=== PATIENT | female | born 1940 | race Caucasian/White ===

== ENCOUNTER → 2017-03-16 | Outpatient (CLI) | payer MEDICARE ==
[2017-03-16 10:56] LABS: BASOPHILS # (AUTO) 0.1 10^3/uL (0.0-0.1); BASOPHILS % (AUTO) 1 % (0-10); EOSINOPHILS # (AUTO) 0.2 10^3/uL (0.0-0.3); EOSINOPHILS % (AUTO) 4 % (0-10); LYMPHOCYTES # (AUTO) 2.9 X 10^3 (1.0-4.0); LYMPHOCYTES % (AUTO) 47 % (12-44); MEAN CORPUSCULAR HEMOGLOBIN 31 PG (25-34); MEAN CORPUSCULAR HGB CONC 34 G/DL (32-36); MEAN CORPUSCULAR VOLUME 91 FL (80-99); MEAN PLATELET VOLUME 11.3 FL (7.4-10.4); MONOCYTES # (AUTO) 0.6 X 10^3 (0.0-1.0); MONOCYTES % (AUTO) 10 % (0-12); NEUTROPHILS # (AUTO) 2.4 X 10^3 (1.8-7.8); NEUTROPHILS % (AUTO) 39 % (42-75); PLATELET COUNT 186 10^3/uL (130-400); RED BLOOD COUNT 4.87 10^6/uL (4.35-5.85); RED CELL DISTRIBUTION WIDTH 12.8 % (10.0-14.5); WHITE BLOOD COUNT 6.2 10^3/uL (4.3-11.0)
[2017-03-16 11:16] LABS: ALANINE AMINOTRANSFERASE 23 U/L (0-55); ALBUMIN 4.1 GM/DL (3.2-4.5); ANION GAP 7 MMOL/L (5-14); ASPARTATE AMINO TRANSFERASE 24 U/L (5-34); BILIRUBIN,TOTAL 1.1 MG/DL (0.1-1.0); BLOOD UREA NITROGEN 14 MG/DL (7-18); BUN/CREATININE RATIO 16; CALCIUM 10.2 MG/DL (8.5-10.1); CARBON DIOXIDE 27 MMOL/L (21-32); CHLORIDE 107 MMOL/L (98-107); CREATININE SERUM 0.85 MG/DL (0.60-1.30); GFR ESTIMATED > 60; GLUCOSE 96 MG/DL (70-105); POTASSIUM 4.2 MMOL/L (3.6-5.0); SODIUM 141 MMOL/L (135-145)
== END ==
LOC: ONC 10:45
PROVIDERS: ATTEND Internal Medicine Hematology & Oncology
DX: Z08 Encounter for follow-up examination after completed treatment for malignant neoplasm (principal); Z85.3 Personal history of malignant neoplasm of breast; Z90.710 Acquired absence of both cervix and uterus; Z92.21 Personal history of antineoplastic chemotherapy; Z92.3 Personal history of irradiation
CPT/HCPCS: 80053; 85025; 99213

== ENCOUNTER → 2018-03-16 | Outpatient (CLI) | payer MEDICARE ==
[2018-03-16 10:32] LABS: BASOPHILS # (AUTO) 0.1 10^3/uL (0.0-0.1); BASOPHILS % (AUTO) 1 % (0-10); EOSINOPHILS # (AUTO) 0.2 10^3/uL (0.0-0.3); EOSINOPHILS % (AUTO) 4 % (0-10); HEMATOCRIT 44 % (35-52); HEMOGLOBIN 14.8 G/DL (11.5-16.0); LYMPHOCYTES # (AUTO) 2.7 X 10^3 (1.0-4.0); LYMPHOCYTES % (AUTO) 49 % (12-44); MEAN CORPUSCULAR HEMOGLOBIN 31 PG (25-34); MEAN CORPUSCULAR HGB CONC 34 G/DL (32-36); MEAN CORPUSCULAR VOLUME 91 FL (80-99); MEAN PLATELET VOLUME 10.7 FL (7.4-10.4); MONOCYTES # (AUTO) 0.6 X 10^3 (0.0-1.0); MONOCYTES % (AUTO) 10 % (0-12); NEUTROPHILS % (AUTO) 35 % (42-75); PLATELET COUNT 182 10^3/uL (130-400); RED BLOOD COUNT 4.84 10^6/uL (4.35-5.85); RED CELL DISTRIBUTION WIDTH 13.2 % (10.0-14.5); WHITE BLOOD COUNT 5.5 10^3/uL (4.3-11.0)
[2018-03-16 10:56] LABS: ALANINE AMINOTRANSFERASE 20 U/L (0-55); ALBUMIN 4.3 GM/DL (3.2-4.5); ALKALINE PHOSPHATASE 72 U/L (40-136); BILIRUBIN,TOTAL 1.3 MG/DL (0.1-1.0); BUN/CREATININE RATIO 20; CALCIUM 9.7 MG/DL (8.5-10.1); CARBON DIOXIDE 25 MMOL/L (21-32); CHLORIDE 107 MMOL/L (98-107); CREATININE SERUM 0.83 MG/DL (0.60-1.30); GFR ESTIMATED > 60; GLUCOSE 75 MG/DL (70-105); SODIUM 139 MMOL/L (135-145); TOTAL PROTEIN 7.1 GM/DL (6.4-8.2)
== END ==
LOC: ONC 10:24
PROVIDERS: ATTEND Internal Medicine Hematology & Oncology
DX: Z08 Encounter for follow-up examination after completed treatment for malignant neoplasm (principal); Z85.3 Personal history of malignant neoplasm of breast; Z90.710 Acquired absence of both cervix and uterus; Z92.21 Personal history of antineoplastic chemotherapy; Z92.3 Personal history of irradiation
CPT/HCPCS: 80053; 85025; 99213

== ENCOUNTER → 2018-08-24 | Outpatient (CLI) | payer MEDICARE ==
[2018-08-24 09:50] LABS: ALANINE AMINOTRANSFERASE 21 U/L (0-55); ALBUMIN 4.4 GM/DL (3.2-4.5); ALKALINE PHOSPHATASE 96 U/L (40-136); BUN/CREATININE RATIO 14; CALCIUM 9.6 MG/DL (8.5-10.1); CARBON DIOXIDE 20 MMOL/L (21-32); CHLORIDE 101 MMOL/L (98-107); CREATININE SERUM 0.78 MG/DL (0.60-1.30); GFR ESTIMATED > 60; GLUCOSE 116 MG/DL (70-105); POTASSIUM 4.5 MMOL/L (3.6-5.0); SODIUM 137 MMOL/L (135-145); TOTAL PROTEIN 7.3 GM/DL (6.4-8.2)
[2018-08-24 15:19] LABS: CHOLESTEROL 227 MG/DL (< 200); HDL CHOLESTEROL 72 MG/DL (40-60); TRIGLYCERIDES 89 MG/DL (<150); VLDL CHOLESTEROL 18 MG/DL (5-40)
== END ==
LOC: LAB FS 09:05
PROVIDERS: ATTEND Pediatrics
DX: I10 Essential (primary) hypertension (principal); E78.00 Pure hypercholesterolemia, unspecified
CPT/HCPCS: 36415; 80053; 80061

== ENCOUNTER 2018-09-20 17:10 | Emergency (ER) | payer MEDICARE ==
[~2018-09-20] VITALS: Ht 167.6 cm; Wt 79.8 kg
--- OUTSIDE RECORDS SUMMARY | 2018-09-20 17:16 | XMS REPORT | Continuity of Care Document ---
Author Organization Unknown Address Unknown Allergies There is no data. Medications There is no data. Problems Date Dx Coded Attending Type Code Diagnosis Diagnosed By 04/06/2014 ILSA SAMS N Ot V10.3 04/06/2014 LATRELLEVETTE RICEAN N Ot V45.77 04/06/2014 LATRELL BOBAN N Ot V58.69 04/06/2014 LATRELL BOBAN N Ot V67.1 04/06/2014 LATRELL BOBAN N Ot V67.2 04/06/2014 LATRELL BOBAN N Ot V88.01 05/24/2015 LATRELL BOBAN N Ot Z08 05/24/2015 LATRELL BOBAN N Ot Z85.3 05/24/2015 LATRELL BOBAN N Ot Z90.710 05/24/2015 LATRELL, BOBAN N Ot Z92.21 05/24/2015 LATRELL, BOBAN N Ot Z92.3 05/30/2015 LATRELL, BOBAN N Ot Z08 05/30/2015 LATRELL, BOBAN N Ot Z85.3 05/30/2015 LATRELL, BOBAN N Ot Z90.710 05/30/2015 LATRELL, BOBAN N Ot Z92.21 05/30/2015 LATRELL, BOBAN N Ot Z92.3 04/07/2016 LATRELL BOBAN N Ot Z08 ENCNTR FOR FOLLOW-UP EXAM AFTER TRTMT FO 04/07/2016 LATRELL, BOBAN N Ot Z85.3 PERSONAL HISTORY OF MALIGNANT NEOPLASM O 04/07/2016 LATRELL, BOBAN N Ot Z90.710 ACQUIRED ABSENCE OF BOTH CERVIX AND UTER 04/07/2016 LATRELL, BOBAN N Ot Z92.21 PERSONAL HISTORY OF ANTINEOPLASTIC CHEMO 04/07/2016 LATRELLEVETTE RICEAN N Ot Z92.3 PERSONAL HISTORY OF IRRADIATION 04/15/2016 EVETTE SAMSAN N Ot Z08 ENCNTR FOR FOLLOW-UP EXAM AFTER TRTMT FO 04/15/2016 ILSA SAMS N Ot Z85.3 PERSONAL HISTORY OF MALIGNANT NEOPLASM O 04/15/2016 ILSA SAMS N Ot Z90.710 ACQUIRED ABSENCE OF BOTH CERVIX AND UTER 04/15/2016 ILSA SAMS N Ot Z92.21 PERSONAL HISTORY OF ANTINEOPLASTIC CHEMO 04/15/2016 ILSA SAMS N Ot Z92.3 PERSONAL HISTORY OF IRRADIATION 04/06/2017 ILSA SAMS N Ot Z08 ENCNTR FOR FOLLOW-UP EXAM AFTER TRTMT FO 04/06/2017 ILSA SAMS N Ot Z85.3 PERSONAL HISTORY OF MALIGNANT NEOPLASM O 04/06/2017 ILSA SAMS N Ot Z90.710 ACQUIRED ABSENCE OF BOTH CERVIX AND UTER 04/06/2017 ILSA SAMS N Ot Z92.21 PERSONAL HISTORY OF ANTINEOPLASTIC CHEMO 04/06/2017 ILSA SAMS N Ot Z92.3 PERSONAL HISTORY OF IRRADIATION 04/15/2017 ILSA SAMS N Ot Z08 ENCNTR FOR FOLLOW-UP EXAM AFTER TRTMT FO 04/15/2017 ILSA SAMS N Ot Z85.3 PERSONAL HISTORY OF MALIGNANT NEOPLASM O 04/15/2017 ILSA SAMS N Ot Z90.710 ACQUIRED ABSENCE OF BOTH CERVIX AND UTER 04/15/2017 ILSA SAMS N Ot Z92.21 PERSONAL HISTORY OF ANTINEOPLASTIC CHEMO 04/15/2017 ILSA SAMS N Ot Z92.3 PERSONAL HISTORY OF IRRADIATION 03/16/2018 ILSA SAMS N Ot V10.3 HX OF BREAST MALIGNANCY 03/16/2018 ILSA SAMS Ot V58.69 OTH MED,LT,CURRENT USE 03/16/2018 ILSA SAMS N Ot V67.1 RADIOTHERAPY FOLLOW-UP 03/16/2018 ILSA SAMS N Ot V67.2 CHEMOTHERAPY FOLLOW-UP 03/16/2018 ILSA SAMS N Ot V88.01 ACQUIRED ABSENCE OF BOTH CERVIX AND UTER 03/16/2018 ILSA SAMS N Ot V10.3 HX OF BREAST MALIGNANCY 03/16/2018 ILSA SAMS N Ot V45.77 ACQRD ABSENCE OF GENITAL ORGANS 03/16/2018 ILSA SAMS N Ot V58.69 OTH MED,LT,CURRENT USE 03/16/2018 ILSA SAMS N Ot V67.1 RADIOTHERAPY FOLLOW-UP 03/16/2018 ILSA SAMS N Ot V67.2 CHEMOTHERAPY FOLLOW-UP 03/16/2018 ILSA SAMS N Ot V88.01 ACQUIRED ABSENCE OF BOTH CERVIX AND UTER 03/16/2018 ILSA SAMS N Ot Z08 ENCNTR FOR FOLLOW-UP EXAM AFTER TRTMT FO 03/16/2018 ILSA SAMS N Ot Z85.3 PERSONAL HISTORY OF MALIGNANT NEOPLASM O 03/16/2018 LATRELL EVETTEBHARAT N Ot Z90.710 ACQUIRED ABSENCE OF BOTH CERVIX AND UTER 03/16/2018 ILSA SAMS N Ot Z92.21 PERSONAL HISTORY OF ANTINEOPLASTIC CHEMO 03/16/2018 LATRELL ILSA N Ot Z92.3 PERSONAL HISTORY OF IRRADIATION 03/16/2018 LATRELL EVETTEBHARAT N Ot Z08 ENCNTR FOR FOLLOW-UP EXAM AFTER TRTMT FO 03/16/2018 LATRELL EVETTEBHARAT N Ot Z85.3 PERSONAL HISTORY OF MALIGNANT NEOPLASM O 03/16/2018 LATRELL EVETTEBHARAT N Ot Z90.710 ACQUIRED ABSENCE OF BOTH CERVIX AND UTER 03/16/2018 ILSA SAMS N Ot Z92.21 PERSONAL HISTORY OF ANTINEOPLASTIC CHEMO 03/16/2018 LATRELL EVETTEBHARAT N Ot Z92.3 PERSONAL HISTORY OF IRRADIATION 03/16/2018 ILSA SAMS N Ot Z08 ENCNTR FOR FOLLOW-UP EXAM AFTER TRTMT FO 03/16/2018 ILAS SAMS N Ot Z85.3 PERSONAL HISTORY OF MALIGNANT NEOPLASM O 03/16/2018 ILSA SAMS N Ot Z90.710 ACQUIRED ABSENCE OF BOTH CERVIX AND UTER 03/16/2018 LATRELL EVETTEBHARAT N Ot Z92.21 PERSONAL HISTORY OF ANTINEOPLASTIC CHEMO 03/16/2018 LATRELL EVETTEBHARAT N Ot Z92.3 PERSONAL HISTORY OF IRRADIATION 03/18/2018 LATRELL EVETTEBHARAT N Ot Z08 ENCNTR FOR FOLLOW-UP EXAM AFTER TRTMT FO 03/18/2018 LATRELL EVETTEBHARAT N Ot Z85.3 PERSONAL HISTORY OF MALIGNANT NEOPLASM O 03/18/2018 LATRELL EVETTEBHARAT N Ot Z90.710 ACQUIRED ABSENCE OF BOTH CERVIX AND UTER 03/18/2018 LATRELL EVETTEBHARAT N Ot Z92.21 PERSONAL HISTORY OF ANTINEOPLASTIC CHEMO 03/18/2018 LATRELL, ILSA N Ot Z92.3 PERSONAL HISTORY OF IRRADIATION 08/25/2018 SHANKAR MARTINEZ MD, Ot E78.00 PURE HYPERCHOLESTEROLEMIA, UNSPECIFIED 08/25/2018 SHANKAR MARTINEZ MD, Ot I10 ESSENTIAL (PRIMARY) HYPERTENSION Procedures There is no data. Results Test Result Range Complete blood count (CBC) with automated white blood cell (WBC) differential - 03/16/17 10:45 Blood leukocytes automated count (number/volume) 6.2 10*3/uL 4.3-11.0 Blood erythrocytes automated count (number/volume) 4.87 10*6/uL 4.35-5.85 Venous blood hemoglobin measurement (mass/volume) 15.1 g/dL 11.5-16.0 Blood hematocrit (volume fraction) 44 % 35-52 Automated erythrocyte mean corpuscular volume 91 [foz_us] 80-99 Automated erythrocyte mean corpuscular hemoglobin (mass per erythrocyte) 31 pg 25-34 Automated erythrocyte mean corpuscular hemoglobin concentration measurement (mass/volume) 34 g/dL 32-36 Automated erythrocyte distribution width ratio 12.8 % 10.0- 14.5 Automated blood platelet count (count/volume) 186 10*3/uL 130-400 Automated blood platelet mean volume measurement 11.3 [foz_us] 7.4-10.4 Automated blood neutrophils/100 leukocytes 39 % 42-75 Automated blood lymphocytes/100 leukocytes 47 % 12-44 Blood monocytes/100 leukocytes 10 % 0-12 Automated blood eosinophils/100 leukocytes 4 % 0-10 Automated blood basophils/100 leukocytes 1 % 0-10 Blood neutrophils automated count (number/volume) 2.4 10*3 1.8-7.8 Blood lymphocytes automated count (number/volume) 2.9 10*3 1.0-4.0 Blood monocytes automated count (number/volume) 0.6 10*3 0.0- 1.0 Automated eosinophil count 0.2 10*3/uL 0.0-0.3 Automated blood basophil count (count/volume) 0.1 10*3/uL 0.0-0.1 Comprehensive metabolic panel - 03/16/17 10:45 Serum or plasma sodium measurement (moles/volume) 141 mmol/L 135-145 Serum or plasma potassium measurement (moles/volume) 4.2 mmol/L 3.6-5.0 Serum or plasma chloride measurement (moles/volume) 107 mmol/L 98-107 Carbon dioxide 27 mmol/L 21-32 Serum or plasma anion gap determination (moles/volume) 7 mmol/L 5-14 Serum or plasma urea nitrogen measurement (mass/volume) 14 mg/dL 7-18 Serum or plasma creatinine measurement (mass/volume) 0.85 mg/dL 0.60-1.30 Serum or plasma urea nitrogen/creatinine mass ratio 16 NRG Serum or plasma creatinine measurement with calculation of estimated glomerular filtration rate > NRG Serum or plasma glucose measurement (mass/volume) 96 mg/dL 70-105 Serum or plasma calcium measurement (mass/volume) 10.2 mg/dL 8.5-10.1 Serum or plasma total bilirubin measurement (mass/volume) 1.1 mg/dL 0.1-1.0 Serum or plasma alkaline phosphatase measurement (enzymatic activity/volume) 77 U/L 40-136 Serum or plasma aspartate aminotransferase measurement (enzymatic activity/volume) 24 U/L 5-34 Serum or plasma alanine aminotransferase measurement (enzymatic activity/volume) 23 U/L 0-55 Serum or plasma protein measurement (mass/volume) 7.0 g/dL 6.4-8.2 Serum or plasma albumin measurement (mass/volume) 4.1 g/dL 3.2-4.5 Comprehensive metabolic panel - 08/24/18 09:11 Serum or plasma sodium measurement (moles/volume) 137 mmol/L 135-145 Serum or plasma potassium measurement (moles/volume) 4.5 mmol/L 3.6-5.0 Serum or plasma chloride measurement (moles/volume) 101 mmol/L 98-107 Carbon dioxide 20 mmol/L -32 Serum or plasma anion gap determination (moles/volume) 16 mmol/L 5-14 Serum or plasma urea nitrogen measurement (mass/volume) 11 mg/dL 7-18 Serum or plasma creatinine measurement (mass/volume) 0.78 mg/dL 0.60-1.30 Serum or plasma urea nitrogen/creatinine mass ratio 14 NRG Serum or plasma creatinine measurement with calculation of estimated glomerular filtration rate > NRG Serum or plasma glucose measurement (mass/volume) 116 mg/dL 70-105 Serum or plasma calcium measurement (mass/volume) 9.6 mg/dL 8.5-10.1 Serum or plasma total bilirubin measurement (mass/volume) 1.0 mg/dL 0.1-1.0 Serum or plasma alkaline phosphatase measurement (enzymatic activity/volume) 96 U/L 40-136 Serum or plasma aspartate aminotransferase measurement (enzymatic activity/volume) 22 U/L 5-34 Serum or plasma alanine aminotransferase measurement (enzymatic activity/volume) 21 U/L 0-55 Serum or plasma protein measurement (mass/volume) 7.3 g/dL 6.4-8.2 Serum or plasma albumin measurement (mass/volume) 4.4 g/dL 3.2-4.5 CALCIUM CORRECTED 9.3 mg/dL 8.5-10.1 Lipid 1996 panel - 08/24/18 09:11 Serum or plasma triglyceride measurement (mass/volume) 89 mg/dL <150 Serum or plasma cholesterol measurement (mass/volume) 227 mg/dL < 200 Serum or plasma cholesterol in HDL measurement (mass/volume) 72 mg/dL 40-60 Cholesterol in LDL [mass/volume] in serum or plasma by direct assay 152 mg/dL 1-129 Serum or plasma cholesterol in VLDL measurement (mass/volume) 18 mg/dL 5-40 Encounters ACCT No. Visit Date/Time Discharge Status Pt. Type Provider Facility Loc./Unit Complaint [id number] 08/24/2018 09:05:00 08/24/2018 23:59:59 CLS Outpatient SHANKAR MARTINEZ MD [facility] LAB FS LISSENTIAL HYPERTENSION [id number] 06/13/2018 12:02:00 06/13/2018 23:59:59 CLS Preadmit SHANKAR MARTINEZ MD [facility] RAD SCREENING [id number] 03/16/2018 10:24:00 03/16/2018 23:59:59 CLS Outpatient ILSA SAMS [facility] ONC [id number] 03/16/2017 10:45:00 03/16/2017 23:59:59 CLS Outpatient ILSA SAMS [facility] ONC [id number] 03/17/2016 08:26:00 03/17/2016 23:59:59 CLS Outpatient ILSA SAMS [facility] FS [id number] 05/07/2015 10:01:00 05/07/2015 23:59:59 CLS Outpatient ILSA SAMS [facility] [id number] 03/13/2014 10:32:00 03/13/2014 23:59:59 CLS Outpatient ILSA SAMS [facility] [id number] 03/14/2013 10:08:00 03/14/2013 23:59:59 CLS Outpatient ILSA SAMS [facility] [id number] 06/27/2018 10:00:00 06/27/2018 23:59:59 CLS Outpatient [facility]
[2018-09-20 17:30] VITALS: BP 167/83
[2018-09-20] MEDS ORDERED: cloNIDine 0.1 MG (CATAPRES) TAB PO ONE (17:45)
--- NOTE | 2018-09-20 17:49 | ED Headache ---
General Chief Complaint: Cardiac/General Problems Stated Complaint: HIGH BP Nursing Triage Note: Patient reports her PCP has been increasing her lisinopril dose, last increase up to 30 mg lisinopril once daily on September 11. She states her blood pressure has been high all day today and she has a headache rated 2/10. Nursing Sepsis Screen: No Definite Risk Source: patient Exam Limitations: no limitations (IMANI STEINBERG MD) History of Present Illness Date Seen by Provider: September 20, 2018 Time Seen by Provider: 17:43 Initial Comments This 77-year-old white female presents with a complaint of hypertension. Patient has had long-standing hypertension which has required gradual increases in her lisinopril. Most recently her lisinopril was increased to 30 mg a day on September [address] Martinez. Patient has been watching her blood pressure closely at home and she noted that it has remained elevated for the last several days. Patient has had a slight self-limited headache each day including today. She rates it as a 2/10. She has been compliant on her medications and has not taken any other medications including [id number] sympathomimetics. The patient denies nuchal rigidity. She denies chest pain, palpitations, shortness of breath, nausea vomiting, diarrhea, dysuria or frequency, fever or chill. Patient is status post lumpectomy by more than a decade and has had no recurrence following chemotherapy and radiation with daily tamoxifen for 5 years. Patient would like to have effective blood pressure medicine intervention until she can follow-up with Dr. Martinez. (IMANI STEINBERG MD) Allergies and Home Medications Allergies Coded Allergies: No Known Drug Allergies (Unverified , 09/20/18) Patient Home Medication List Home Medication List Reviewed: Yes (IMANI STEINBERG MD) Review of Systems Review of Systems Constitutional: no symptoms reported; No chills, No diaphoresis, No fever Eyes: Denies Blurred Vision; Photophobia Ears, Nose, Mouth, Throat: denies ear pain Respiratory: No cough Cardiovascular: No chest pain, No edema, No palpitations Gastrointestinal: No abdominal pain, No diarrhea, No vomiting Genitourinary: No dysuria, No frequency Musculoskeletal: No back pain Skin: No rash Psychiatric/Neurological: No Symptoms Reported (IMANI STEINBERG MD) Past Jhdudqy-Krbagg-Qxaoxt Hx Past Med/Social Hx: Reviewed Nursing Past Med/Soc Hx (IMANI STEINBERG MD) Patient Social History Alcohol Use: Denies Use Recreational Drug Use: No Smoking Status: Never a Smoker 2nd Hand Smoke Exposure: No Recent Foreign Travel: No Contact w/Someone Who Travel: No Recent Infectious Disease Expo: No Recent Hopitalizations: No Physical Abuse: No Sexual Abuse: No Mistreated: No Fear: No (IMANI STEINBERG MD) Seasonal Allergies Seasonal Allergies: No (IMANI STEINBERG MD) Past Medical History Surgeries: Yes Appendectomy, Hysterectomy, Lumpectomy Respiratory: No Cardiac: Yes Hypertension Neurological: No Genitourinary: No Gastrointestinal: No Musculoskeletal: No Endocrine: No HEENT: No Cancer: No Psychosocial: No Integumentary: No (IMANI STEINBERG MD) Physical Exam Vital Signs Vital Signs - First Documented 09/20/18 17:15 Temp 97.0 Pulse 91 Resp 18 B/P (MAP) 186/109 (134) Pulse Ox 99 O2 Delivery Room Air (JOSUÉ LAI MD) Vital Signs Capillary Refill : Less Than 3 Seconds (IMANI STEINBERG MD) Height, Weight, BMI Height: 5'6.00" Weight: 176lbs. oz. 79.837351gh; BMI Method:Stated General Appearance: WD/WN, no apparent distress HEENT: normal ENT inspection Neck: normal inspection Cardiovascular: regular rate, rhythm Respiratory: lungs clear, normal breath sounds Gastrointestinal: normal bowel sounds, non tender, soft Back: normal inspection Extremities: normal range of motion, non-tender, normal inspection Psychiatric: alert, oriented x 3 Crainal Nerves: normal hearing, normal speech, PERRL Motor/Sensory: no motor deficit, no sensory deficit Skin: normal color, warm/dry (IMANI STEINBERG MD) Progress/Results/Core Measures Results/Orders Lab Results Laboratory Tests Test 09/20/18 18:00 09/20/18 18:15 Range/Units White Blood Count 7.3 4.3-11.0 10^3/uL Red Blood Count 4.85 4.35-5.85 10^6/uL Hemoglobin 14.8 11.5-16.0 G/DL Hematocrit 44 35-52 % Mean Corpuscular Volume 91 80-99 FL Mean Corpuscular Hemoglobin 31 25-34 PG Mean Corpuscular Hemoglobin Concent 34 32-36 G/DL Red Cell Distribution Width 12.8 10.0-14.5 % Platelet Count 183 130-400 10^3/uL Mean Platelet Volume 11.3 H 7.4-10.4 FL Neutrophils (%) (Auto) 36 L 42-75 % Lymphocytes (%) (Auto) 50 H 12-44 % Monocytes (%) (Auto) 10 0-12 % Eosinophils (%) (Auto) 3 0-10 % Basophils (%) (Auto) 1 0-10 % Neutrophils # (Auto) 2.6 1.8-7.8 X 10^3 Lymphocytes # (Auto) 3.6 1.0-4.0 X 10^3 Monocytes # (Auto) 0.7 0.0-1.0 X 10^3 Eosinophils # (Auto) 0.2 0.0-0.3 10^3/uL Basophils # (Auto) 0.1 0.0-0.1 10^3/uL Sodium Level 140 135-145 MMOL/L Potassium Level 4.2 3.6-5.0 MMOL/L Chloride Level 102 98-107 MMOL/L Carbon Dioxide Level 26 21-32 MMOL/L Anion Gap 12 5-14 MMOL/L Blood Urea Nitrogen 14 7-18 MG/DL Creatinine 0.82 0.60-1.30 MG/DL Estimat Glomerular Filtration Rate > 60 BUN/Creatinine Ratio 17 Glucose Level 95 70-105 MG/DL Calcium Level 9.2 8.5-10.1 MG/DL Corrected Calcium 9.0 8.5-10.1 MG/DL Total Bilirubin 0.8 0.1-1.0 MG/DL Aspartate Amino Transf (AST/SGOT) 22 5-34 U/L Alanine Aminotransferase (ALT/SGPT) 18 0-55 U/L Alkaline Phosphatase 82 40-136 U/L Troponin T 6 <=10 NG/L Total Protein 7.0 6.4-8.2 GM/DL Albumin 4.3 3.2-4.5 GM/DL Urine Color YELLOW Urine Clarity CLEAR Urine pH 6.0 5-9 Urine Specific [place] <1.005 1.016-1.022 Urine Protein NEGATIVE NEGATIVE Urine Glucose (UA) NEGATIVE NEGATIVE Urine Ketones NEGATIVE NEGATIVE Urine Nitrite NEGATIVE NEGATIVE Urine Bilirubin NEGATIVE NEGATIVE Urine Urobilinogen 0.2 NORMAL MG/DL Urine Leukocyte Esterase NEGATIVE NEGATIVE Urine RBC (Auto) NEGATIVE NEGATIVE Urine RBC NONE /HPF Urine WBC RARE /HPF Urine Squamous Epithelial Cells 0-2 /HPF Urine Crystals NONE /LPF Urine Bacteria NONE /HPF Urine Casts PRESENT /LPF Urine Hyaline Casts 0-2 H /LPF Urine Mucus TRACE /LPF Urine Culture Indicated NO (JOSUÉ LAI MD) My Orders Orders - JOSUÉ LAI MD Amlodipine Tablet (Norvasc Tablet) (09/20/18 19:00) (JOSUÉ LAI MD) Medications Given in ED Current Medications Medications Dose Ordered Sig/Ruben Route Start Time Stop Time Status Last Admin Dose Admin Amlodipine Besylate 5 mg ONCE ONCE PO 09/20/18 19:00 09/20/18 19:01 DC 09/20/18 19:06 5 MG Clonidine HCl 0.1 mg ONCE ONCE PO 09/20/18 17:45 09/20/18 17:46 DC 09/20/18 18:15 0.1 MG Tramadol HCl 50 mg ONCE ONCE PO 09/20/18 17:45 09/20/18 17:46 DC 09/20/18 18:15 50 MG (JOSUÉ LAI MD) Vital Signs/I&O 09/20/18 09/20/18 17:15 17:30 Temp 97.0 Pulse 91 Resp 18 B/P (MAP) 186/109 (134) 167/83 (111) Pulse Ox 99 O2 Delivery Room Air (JOSUÉ LAI MD) Blood Pressure Mean: 111 Progress Progress Note : Progress Note 182 serial: Assumed care of the patient from Dr. Steinberg pending CT head and we are monitoring her blood pressure. 1899: I have reevaluated the patient. CT head results are pending. Patient is actually feeling better. She was given the clonidine and we have not really had any effect from that as of yet. We will go ahead and initiate amlodipine 5 mg by mouth. Anticipate continuing that as outpatient. It does not appear her lisinopril 30 mg daily doses effective at relatively controlling her blood pressure. She will follow with Dr. Martinez. Monitor patient. 1939: Blood pressure currently 131/70 and patient is feeling much better with heart rate of 70. We will continue the amlodipine outpatient. Discharged home with return precautions. Patient verbalize understanding instructions and agreement with plan. 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 No evidence of ST elevation MD. No previous available for comparison. Interpreted by me. (JOSUÉ LAI MD) Diagnostic Imaging Diagonstic Imaging: Xray Plain Films/CT/US/NM/MRI: chest Comments [email or web address] [place] [id number] PT STATUS: REG ER : 1940 PHYSICIAN: IMANI STEINBERG MD ADMIT DATE: 09/20/18/ER FS Draft Date of Exam:09/20/18 CHEST 1 VIEW AP/PA ONLY INDICATION: Headache and elevated blood pressure. Time of exam: 6:09 PM No prior studies are available for comparison. Right hemidiaphragm is elevated. The heart size normal. There are surgical clips overlying the right chest. No infiltrates are seen. There is no effusion or pneumothorax. IMPRESSION: No acute cardiopulmonary processes detected. Dictated on workstation # [id number] Dict: 09/20/18 184 Trans: 09/20/18 184 [facility] [id number] Interpreted by: SUZANNA HERRERA MD Electronically signed by: Diagonstic Imaging: CT Plain Films/CT/US/NM/MRI: head Comments [email or web address] [place] NAME[facility] [id number] PT STATUS: REG ER : 1940 PHYSICIAN: IMANI STEINBERG MD ADMIT DATE: 09/20/18/ER FS Draft Date of Exam:09/20/18 CT HEAD WO PROCEDURE: CT head without contrast. TECHNIQUE: Multiple contiguous axial images were obtained through the brain without the use of intravenous contrast. Auto Exposure Controls were utilized during the CT exam to meet ALARA standards for radiation dose reduction. INDICATION: Dull headache and elevated blood pressure. COMPARISON: No prior studies are available for comparison. FINDINGS: Ventricles and sulci are consistent with the patient's age. No sulcal effacement or midline shift is seen. No acute intra-axial or extra-axial hemorrhage is detected. Cisterns are patent. Visualized paranasal sinuses are clear. IMPRESSION: No acute intracranial process is detected. Dictated on workstation # [id number] Dict: 09/20/18 1842 Trans: 09/20/18 1845 [facility] [id number] Interpreted by: SUZANNA HERRERA MD Electronically signed by: (JOSUÉ LAI MD) Departure Impression Primary Impression: Hypertension Qualified Codes: I10 - Essential (primary) hypertension Disposition: HOME, SELF-CARE Condition: Improved Departure-Patient Inst. Decision time for Depature: 19:40 (JOSUÉ LAI MD) Referrals: SHANKAR MARTINEZ MD (PCP/Family) Primary Care Physician Patient Instructions: High Blood Pressure (DC) Add. Discharge Instructions: All discharge instructions reviewed with patient and/or family. Voiced understanding. Take medications as directed. Follow-up with Dr. Martinez within one week for recheck and further evaluation. You should chart your blood pressure twice daily and take that record to Dr. Martinez. Return for weakness, breathing problems, leg swelling, chest pain, headache or other concerns as needed. Scripts Amlodipine Besylate (Amlodipine Besylate) 5 Mg Tablet 5 MG PO DAILY, #15 TAB 0 Refills Prov: JOSUÉ LAI MD 09/20/18 Copy Copies To 1: SHANKAR MARTINEZ MD, MARK S MD September 20, 2018 17:49 JOSUÉ LAI MD September 20, 2018 19:06
[2018-09-20 18:13] LABS: HEMATOCRIT 44 % (35-52); HEMOGLOBIN 14.8 G/DL (11.5-16.0); MEAN CORPUSCULAR HEMOGLOBIN 31 PG (25-34); MEAN CORPUSCULAR VOLUME 91 FL (80-99); WHITE BLOOD COUNT 7.3 10^3/uL (4.3-11.0)
[2018-09-20 18:14] LABS: BASOPHILS % (AUTO) 1 % (0-10); EOSINOPHILS # (AUTO) 0.2 10^3/uL (0.0-0.3); EOSINOPHILS % (AUTO) 3 % (0-10); LYMPHOCYTES # (AUTO) 3.6 X 10^3 (1.0-4.0); LYMPHOCYTES % (AUTO) 50 % (12-44); MEAN CORPUSCULAR HGB CONC 34 G/DL (32-36); MEAN PLATELET VOLUME 11.3 FL (7.4-10.4); MONOCYTES # (AUTO) 0.7 X 10^3 (0.0-1.0); MONOCYTES % (AUTO) 10 % (0-12); NEUTROPHILS # (AUTO) 2.6 X 10^3 (1.8-7.8); NEUTROPHILS % (AUTO) 36 % (42-75); PLATELET COUNT 183 10^3/uL (130-400); RED CELL DISTRIBUTION WIDTH 12.8 % (10.0-14.5)
[2018-09-20 18:15] LABS: BASOPHILS # (AUTO) 0.1 10^3/uL (0.0-0.1)
[2018-09-20 18:22] LABS: BILIRUBIN,URINE NEGATIVE (NEGATIVE); CLARITY,URINE CLEAR; COLOR,URINE YELLOW; GLUCOSE, URINE (UA) NEGATIVE (NEGATIVE); KETONES,URINE NEGATIVE (NEGATIVE); LEUKOCYTE ESTERASE ,URINE NEGATIVE (NEGATIVE); NITRITE,URINE NEGATIVE (NEGATIVE); PROTEIN,URINE NEGATIVE (NEGATIVE); UROBILINOGEN,URINE 0.2 MG/DL (NORMAL)
[2018-09-20 18:23] LABS: HYALINE CASTS, URINE 0-2 /LPF; SQUAMOUS EPITHELIAL CELL,UR 0-2 /HPF; WBC,URINE RARE /HPF
--- NOTE | 2018-09-20 18:43 | Diagnostic Imaging Report ---
INDICATION: Headache and elevated blood pressure. Time of exam: 6:09 PM No prior studies are available for comparison. Right hemidiaphragm is elevated. The heart size normal. There are surgical clips overlying the right chest. No infiltrates are seen. There is no effusion or pneumothorax. IMPRESSION: No acute cardiopulmonary processes detected. Dictated by: Dictated on workstation # [id number]
--- NOTE | 2018-09-20 18:45 | Diagnostic Imaging Report ---
PROCEDURE: CT head without contrast. TECHNIQUE: Multiple contiguous axial images were obtained through the brain without the use of intravenous contrast. Auto Exposure Controls were utilized during the CT exam to meet ALARA standards for radiation dose reduction. INDICATION: Dull headache and elevated blood pressure. COMPARISON: No prior studies are available for comparison. FINDINGS: Ventricles and sulci are consistent with the patient's age. No sulcal effacement or midline shift is seen. No acute intra-axial or extra-axial hemorrhage is detected. Cisterns are patent. Visualized paranasal sinuses are clear. IMPRESSION: No acute intracranial process is detected. Dictated by: Dictated on workstation # [id number]
[2018-09-20 18:46] LABS: CARBON DIOXIDE 26 MMOL/L (21-32); CHLORIDE 102 MMOL/L (98-107); POTASSIUM 4.2 MMOL/L (3.6-5.0); SODIUM 140 MMOL/L (135-145)
[2018-09-20 18:47] LABS: ALANINE AMINOTRANSFERASE 18 U/L (0-55); ALBUMIN 4.3 GM/DL (3.2-4.5); ALKALINE PHOSPHATASE 82 U/L (40-136); BILIRUBIN,TOTAL 0.8 MG/DL (0.1-1.0); BUN/CREATININE RATIO 17; CALCIUM 9.2 MG/DL (8.5-10.1); CREATININE SERUM 0.82 MG/DL (0.60-1.30); GFR ESTIMATED > 60; GLUCOSE 95 MG/DL (70-105)
[2018-09-20] MEDS ORDERED: amLODIPine 5 MG (NORVASC) TAB PO ONE (19:00)
[2018-09-20] MEDS ORDERED: AMLO5TAB9 PO (19:42)
[2018-09-20 19:50] VITALS: BP 121/63
== END 2018-09-20 19:50 | disposition home or self-care (01) ==
LOC: EDUNIT# 17:10 → ER FS 17:12
DX: I10 Essential (primary) hypertension (principal); Z90.710 Acquired absence of both cervix and uterus; Z90.49 Acquired absence of other specified parts of digestive tract
CPT/HCPCS: 36415; 70450; 71045; 80053; 81000; 84484; 85025; 93005